=== PATIENT | male | born 1970 | race Caucasian/White ===

== ENCOUNTER 2021-01-31 19:56 | Emergency (ER) | payer OTHER, SELFPAY ==
--- NOTE | ~2021-01-31 | CT_ITS ---
EXAMINATION: CT ABDOMEN AND PELVIS WITHOUT CONTRAST CLINICAL INFORMATION: Left lower quadrant pain. Concern for diverticulitis. COMPARISON: None TECHNIQUE: Multidetector volumetric imaging was performed from the superior aspect of the liver through the pubic symphysis. Sagittal and coronal reformatted images were obtained on the technologist's workstation. This CT examination was performed using dose optimization techniques as appropriate, variously including the following: *Automated exposure control *Adjustment of mA and/or kV according to patient size (this includes techniques or standardized protocols for targeted exams where dose is matched to indication/reason for exam; i.e. extremities or head) *Use of iterative reconstruction technique DLP: 640 mGy-cm FINDINGS: LUNG BASES: The visualized lung bases are unremarkable. LIVER, GALLBLADDER, AND BILIARY TREE: The liver is normal in size, shape, and attenuation. No focal hepatic lesion or biliary ductal dilatation is present. The gallbladder is unremarkable with no evidence of radiopaque gallstones, gallbladder wall thickening, or obvious pericholecystic inflammatory changes. PANCREAS: Unremarkable. SPLEEN: Unremarkable. ADRENAL GLANDS: Unremarkable. KIDNEYS AND URETERS: There are multiple exophytic lesions at the upper pole left kidney. These are most consistent with hypodense and hyperdense cysts. Measure up to about 2 cm in diameter. These were not present on the renal ultrasound study of 10/18/2007. The kidneys are of normal size and contour with normal cortical thickness. No renal or ureteral calculus. There is no hydronephrosis. BLADDER: Unremarkable. GASTROINTESTINAL TRACT: There are numerous diverticula throughout the colon. There is a moderate diverticulitis of the mid sigmoid colon. There is focal bowel wall thickening and edema and pericolonic edema in the fat. There is no perforation. There is no abscess. No bowel obstruction. The appendix is not seen. ABDOMINAL WALL: Small fat-containing right inguinal hernia. LYMPH NODES: Normal. VASCULAR: Unremarkable. PELVIC VISCERA: Unremarkable. OSSEOUS STRUCTURES: Unremarkable. CT/CT abdomen pelvis wo con IMPRESSION: 1. Diverticulitis of mid sigmoid colon. No abscess or bowel obstruction. 2. Multiple hypodense and hyperdense exophytic lesions at the upper pole left kidney which are likely cyst. These can be further assessed with renal ultrasound.
[2021-01-31 20:10] VITALS: BP 124/86; BP 134/91; PULSE 87; PULSE 88; RESP 24; TEMP 37; O2SAT 100; O2SAT 96; BMI 30.5
--- NOTE | 2021-01-31 20:37 | ED_ITS ---
HPI - Abdominal Pain General Chief Complaint: Abdominal Pain Stated Complaint: LOW ABD PAIN Time Seen by Provider: 01/31/21 20:36 Source: patient Mode of arrival: EMS Limitations: no limitations History of Present Illness HPI narrative: Patient with history of diverticulitis more than 10 years ago noticed pain in the left lower quadrant for last 2 days getting worse notice low-grade fever also at home slight nausea no vomiting no diarrhea no blood in stool able to eat and drink but pain is getting worse for last few hours patient feels slightly bloated pain gets worse when he ambulates no urinary complaints Related Data Previous Rx's Medication Instructions Recorded ciprofloxacin HCl [Cipro] 500 mg PO BID #20 tab 01/31/21 metronidazole [Flagyl] 500 mg PO TID #30 tab 01/31/21 ondansetron 4 mg PO Q6-8H PRN #7 tab 01/31/21 oxycodone 5 mg PO Q6H PRN #20 tab 01/31/21 Allergies Allergy/AdvReac Type Severity Reaction Status Date / Time azithromycin AdvReac Stomach Verified 01/31/21 20:10 Upset Review of Systems Review of Systems Constitutional : No Weight loss, No Fever, No Chills ENT/Mouth : No sore throat, No Rhinorrhea Eyes: No Eye Pain, No Swelling Cardiovascular : No Chest Pain, no palpitations Respiratory : No Cough, No Sputum, no shortness of breath Gastrointestinal : + Nausea, No Vomiting, No Diarrhea, + abdominal Pain, no black stools Genitourinary : No Dysuria, No Urinary Frequency Musculoskeletal : No joint pain, No Myalgias, No Joint Swelling Skin : No Skin Lesions, No rash Neuro : No Weakness, No Numbness, No Dizziness, No Headache Psych : No Anxiety/Panic, No Depression Heme/Lymph: No Bruising, No Lymphadenopathy Endocrine : No Polyuria, No Polydipsia All other systems reviewed and are negative Physical Exam Vital Signs: Vital Signs: Last Vital Signs Temp 98.6 F 01/31/21 20:10 Pulse 98 01/31/21 21:57 Resp 17 01/31/21 21:57 BP 123/78 01/31/21 21:57 Pulse Ox 95 01/31/21 21:57 Body Mass Index 30.5 Appearance: Alert. Oriented X3. No acute distress. Eyes: PERRLA, No Nystagmus ENT: Pharynx normal. Oral Mucosa moist Neck: Normal inspection. Neck supple. CVS: Normal heart rate and rhythm. Pulses normal. Respiratory: No respiratory distress. Equal air entry bilateral, no wheezing/rales/rhonchi Abdomen: Soft , deep tenderness left lower quadrant no rebound tenderness, slight guarding , Bowel sounds are present, no mass palpable, no CVA tenderness Skin: Skin warm and dry. Normal skin color. Normal skin turgor. Extremities: No lower extremity edema. No calf tenderness Neuro: Oriented X 3. No motor deficit. No sensory deficit.No cerebellar signs , cranial nerves II-XII intact MDM - Abdominal Pain MDM Narrative Medical decision making narrative: Patient with uncomplicated diverticulitis with chronic thrombocytopenia secondary to alcohol use patient feeling much better after IV fluids and pain medication received Zosyn IV will discharge patient home on Cipro and Flagyl advised not to drink alcohol while taking Flagyl Differential Diagnosis Differential diagnosis: Likely diverticulitis Lab Data Attestation: I reviewed the patient's lab results. Result diagrams: 01/31/21 21:05 01/31/21 21:05 Labs: Lab Results 01/31/21 01/31/21 01/31/21 Range/Units 21:05 21:05 22:45 WBC 13.3 H (4.8-10.8) X10*3/uL RBC 4.27 L (4.60-5.80) X10*6/uL Hgb 14.7 (14.0-18.0) g/dl Hct 42.0 (42-52) % MCV 98.4 H (80-98) fL MCH 34.4 H (27.0-33.0) pg MCHC 35.0 (31.0-36.0) g/dl RDW 12.2 (11.0-16.0) % Plt Count 74 L (160-400) X10*3/uL MPV 10.0 (9.4-12.4) fL Immature Gran % (Auto) 0.6 H (0.0-0.4) % Neut % (Auto) 78.8 H (45-73) % Lymph % (Auto) 7.9 L (20-40) % [place] % (Auto) 12.2 H (2-11) % Eos % (Auto) 0.3 (0-4) % Baso % (Auto) 0.2 (0-2) % Lymph # (Auto) 1.1 L (1.2-4.9) X10*3/uL [place] # (Auto) 1.6 H (0.1-1.2) X10*3/uL Eos # (Auto) 0.0 (0.0-0.4) X10*3/uL Baso # (Auto) 0.0 (0.0-0.2) X10*3/uL Abs Immat Gran (auto) 0.08 H (0.00-0.03) X10*3/uL Absolute Neuts (auto) 10.5 H (2.0-8.3) X10*3/uL Absolute Nucleated RBC 0.000 (0.0-0.012) X10*3/uL Nucleated RBC % (auto) 0.0 (0.0-0.2) /100WBC Smear Tech's Comments VERIFIED Sodium 139 (135-145) mmol/L Potassium 3.8 (3.3-5.1) mmol/L Chloride 102 (96-108) mmol/L Carbon Dioxide 24 (22-29) mmol/L Anion Gap 17 (12-20) BUN 13 (9-16) mg/dL Creatinine 0.99 (0.5-1.4) mg/dL Estim Creat Clear Calc 101.7 Estimated GFR > 60 Random Glucose 124 H (60-115) mg/dL Calcium 9.5 (8.4-10.2) mg/dL Total Bilirubin 1.5 H (0.0-1.0) mg/dL Direct Bilirubin 0.6 H (0.0-0.5) mg/dL AST 15 (5-37) U/L ALT 23 (0-40) U/L Alkaline Phosphatase 63 (39-117) U/L Total Protein 7.1 (6.5-8.0) g/dL Albumin 4.5 (3.5-5.0) g/dL Lipase 4 L (8-78) U/L Urine Color DARK YELLOW Urine Appearance CLEAR Urine pH 6.0 (5.0-8.0) Ur Specific [place] >= 1.030 H (1.005-1.025) Urine Protein 2+ H (NEG-TRACE) MG/DL Urine Glucose (UA) NEG (NEG) MG/DL Urine Ketones 40 (NEG) MG/DL Urine Blood NEG (NEG) Urine Nitrite NEG (NEG) Ur Leukocyte Esterase NEG (NEG) Urine RBC 0 (0) /HPF Urine WBC 0-2 (0-4) /HPF Ur Squamous Epith Cells TRACE /LPF Urine Bacteria NONE /LPF Hyaline Casts 0-2 /LPF Urine Mucus 1+ /LPF Urine Sperm NOTED Discharge Plan Discharge Clinical Impression: Diverticulitis Patient Disposition: Home, Self-Care Instructions: Diverticulitis (ED) Additional Instructions: Clear liquids has advised gradually advance as tolerated Take antibiotics as prescribed, take pain medication As prescribed report to the ER if increased abdominal pain/high fever/increased vomiting/abdominal distension Prescriptions: New ciprofloxacin HCl [Cipro] 500 mg tablet 500 mg PO BID Qty: 20 RF: 0 metronidazole [Flagyl] 500 mg tablet 500 mg PO TID Qty: 30 RF: 0 oxycodone 5 mg tablet 5 mg PO Q6H PRN (Reason: pain) Qty: 20 RF: 0 ondansetron 4 mg tablet,disintegrating 4 mg PO Q6-8H PRN (Reason: nausea and vomiting) Qty: 7 RF: 0 PMFSH Past Medical History Medical History (Updated 01/31/21 @ 23:16 by Terry Hannah MD) Diverticulitis Social History Social History Advance Directives: No Advance Directives Information Provided: Yes
[2021-01-31] MEDS: Morphine Sulfate 4 MG/ML CARTRIDGE IVPUSH ×2 (20:59→23:17)
[2021-01-31] MEDS: ondansetron HCL 4 MG/2 ML VIAL IVPUSH (20:59)
[2021-01-31] MEDS: 0.9 % Sodium Chloride 1,000 ML 999 ML IVCONT (21:02)
[2021-01-31 21:06] VITALS: BP 111/69; PULSE 89; RESP 17; O2SAT 95
[2021-01-31 21:22] LABS: Basophils Percent Auto 0.2 % (0-2); Eosinophils Percent Auto 0.3 % (0-4); Hemoglobin 14.7 g/dl (14.0-18.0); Imm Gran Abs Auto 0.08 X10*3/uL (0.00-0.03); Imm Gran Pct Auto 0.6 % (0.0-0.4); Lymphocytes Absolute Auto 1.1 X10*3/uL (1.2-4.9); Lymphocytes Percent Auto 7.9 % (20-40); MANUAL DIFF FLAG SCAN; Mean Corpuscular Hemoglobin 34.4 pg (27.0-33.0); Mean Corpuscular Volume 98.4 fL (80-98); Monocytes Absolute Auto 1.6 X10*3/uL (0.1-1.2); Monocytes Percent Auto 12.2 % (2-11); Neutrophils Absolute Auto 10.5 X10*3/uL (2.0-8.3); Neutrophils Percent Auto 78.8 % (45-73); Red Blood Count 4.27 X10*6/uL (4.60-5.80); Red Cell Distribution Width 12.2 % (11.0-16.0); SCAN SMEAR FLAG 1; White Blood Count 13.3 X10*3/uL (4.8-10.8)
--- NOTE | 2021-01-31 21:22 | PC.NURSE ---
pt returned from ED CT without incidence.
[2021-01-31 21:25] LABS: Platelet Count 74 X10*3/uL (160-400)
[2021-01-31 21:47] LABS: Alanine Aminotransferase 23 U/L (0-40); Albumin Level 4.5 g/dL (3.5-5.0); Alkaline Phosphatase 63 U/L (39-117); Anion Gap 17 (12-20); Aspartate Amino Transferase 15 U/L (5-37); Bilirubin Direct 0.6 mg/dL (0.0-0.5); Bilirubin Total 1.5 mg/dL (0.0-1.0); Blood Urea Nitrogen 13 mg/dL (9-16); Calcium 9.5 mg/dL (8.4-10.2); Carbon Dioxide 24 mmol/L (22-29); Chloride 102 mmol/L (96-108); Creatinine Clr Calc Pharmacy 101.7; Estimated Glomerular Filt Rate > 60; Glucose Random 124 mg/dL (60-115); Lipase 4 U/L (8-78); Potassium 3.8 mmol/L (3.3-5.1); Sodium 139 mmol/L (135-145); Total Protein 7.1 g/dL (6.5-8.0)
[2021-01-31 21:57] VITALS: BP 123/78; PULSE 98; RESP 17; O2SAT 95
[2021-01-31] MEDS: Piperacillin Sodium/Tazobactam 3.375 GM in 0.9 % Sodium Chloride 50 ML IV (22:00)
[2021-01-31 22:08] LABS: SLIDE REVIEW VERIFIED
[2021-01-31 22:54] LABS: Glucose Urine UA NEG (NEG); Leukocyte Esterase Urine NEG (NEG); Nitrite Urine NEG (NEG); Specific Gravity - Urine >= 1.030 (1.005-1.025); Urine Blood NEG (NEG); Urine Ketones 40 MG/DL (NEG); Urine Protein 2+ MG/DL (NEG-TRACE)
[2021-01-31 22:55] LABS: Appearance Urine CLEAR; Color Urine DARK YELLOW
[2021-01-31 23:04] LABS: Hyaline Casts Urine 0-2 /LPF; Mucus Urine 1+ /LPF; RBC Urine 0 /HPF (0); Sperm Urine NOTED; Squamous Epithelial Cell Urine TRACE /LPF; WBC Urine 0-2 /HPF (0-4)
[2021-01-31 23:15] VITALS: BP 122/79; PULSE 105; RESP 18; TEMP 37.6; O2SAT 97
== END 2021-01-31 23:30 | disposition home or self-care (01) ==
PROVIDERS: Emergency Provider Internal Medicine; PCP Internal Medicine
DX: K57.92 Diverticulitis of intestine, part unspecified, without perforation or abscess without bleeding (principal); D69.6 Thrombocytopenia, unspecified; Z72.89 Other problems related to lifestyle
CPT/HCPCS: 36415; 74176; 80048; 80076; 81001; 83690; 85025; 96361; 96365; 96375; 96376; 99284; J2270; J2405; J2543

== ENCOUNTER 2024-09-19 09:11 | Outpatient (REF) | payer OTHER, SELFPAY ==
[2024-09-19 16:33] LABS: Influenza A PCR POSITIVE (Negative); Influenza B PCR NEGATIVE (Negative); Resp Syncy Virus RNA Qual PCR NEGATIVE (Negative); SARS COV2 PCR INHOUSE NEGATIVE (Negative)
== END 2024-09-19 09:12 | disposition home or self-care (01) ==
LOC: HO.LNP 09:11
PROVIDERS: PCP Internal Medicine; Visit Provider Physician Assistant
DX: J11.1 Influenza due to unidentified influenza virus with other respiratory manifestations (principal)
CPT/HCPCS: 0241U; 99212